=== PATIENT | male | born 1985 | race Two or more races ===

== ENCOUNTER 2018-05-26 17:56 | Emergency (ER) | payer MEDICAID, OTHER ==
[~2018-05-26] VITALS: Ht 182.9 cm; Wt 86.2 kg
[2018-05-26 18:41] VITALS: BP 131/85
== END 2018-05-26 22:10 | disposition home or self-care (01) ==
LOC: ER 18:02
DX: S93.692A Other sprain of left foot, initial encounter (principal); F17.210 Nicotine dependence, cigarettes, uncomplicated; X50.1XXA Overexertion from prolonged static or awkward postures, initial encounter; Y93.39 Activity, other involving climbing, rappelling and jumping off; Y99.8 Other external cause status; Y92.481 Parking lot as the place of occurrence of the external cause
CPT/HCPCS: 73620

== ENCOUNTER 2018-08-23 07:47 | Emergency (ER) | payer MEDICAID ==
[~2018-08-23] VITALS: Ht 182.9 cm; Wt 86.2 kg
[2018-08-23 08:30] VITALS: BP 123/72
[2018-08-23] MEDS ORDERED: KETOROLAC TROMETH 60MG/2ML VIAL IM ONE (09:00)
== END 2018-08-23 09:42 | disposition home or self-care (01) ==
LOC: ER 07:50
DX: S93.401A Sprain of unspecified ligament of right ankle, initial encounter (principal); S83.92XA Sprain of unspecified site of left knee, initial encounter; F17.210 Nicotine dependence, cigarettes, uncomplicated; W13.8XXA Fall from, out of or through other building or structure, initial encounter; Y93.89 Activity, other specified; Y99.8 Other external cause status; Y92.89 Other specified places as the place of occurrence of the external cause
CPT/HCPCS: 73562; 73610; 96372; 99284; J1885

== ENCOUNTER 2018-09-28 12:27 | Emergency (ER) | payer MEDICAID ==
[~2018-09-28] VITALS: Ht 182.9 cm; Wt 88.5 kg
[2018-09-28 12:42] VITALS: BP 140/96
== END 2018-09-28 14:37 | disposition home or self-care (01) ==
LOC: ER 12:27
DX: L73.9 Follicular disorder, unspecified (principal); F17.210 Nicotine dependence, cigarettes, uncomplicated